=== PATIENT | female | born 1980 | race Two or more races ===

== ENCOUNTER 2017-01-20 13:22 | Emergency (ER) | payer OTHER ==
[2017-01-20 13:31] VITALS: RESP 18
--- NOTE | 2017-01-20 15:11 | EDPHY ---
H & P Stated Complaint: hx degenerative disc disease increasing pain/spasms making her nauseated Time Seen by Provider: 01/20/17 13:57 HPI/ROS: CHIEF COMPLAINT: low back pain HISTORY OF PRESENT ILLNESS: 36-year-old female presents emergency department complaining of worsening low back pain for the past 2 weeks. Patient reports her pain is bilateral, into her hips and pelvis, worse on the right side. Patient reports pain radiates down her lateral right leg. Patient states 2 days ago she had bowel incontinence. She reports numbness and tingling to her groin. Patient reports a known herniated disc from MRI in 2011 that she never had followed up. This pain improved significantly until a few weeks ago. 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 She denies any new trauma. This morning her pain increased significantly while brushing her teeth. Patient denies fevers or chills. No urinary frequency, urgency or dysuria. REVIEW OF SYSTEMS: A comprehensive 10 point review of systems is otherwise negative aside from elements mentioned in the history of present illness. Source: Patient Exam Limitations: No limitations - Personal History LMP (Females 10-55): Hysterectomy Current Tetanus/Diphtheria Vaccine: Unsure - Medical/Surgical History Hx Asthma: No Hx Chronic Respiratory Disease: No Hx Diabetes: No Hx Cardiac Disease: No Hx Renal Disease: No Hx Cirrhosis: No Hx Alcoholism: No Hx HIV/AIDS: No Hx Splenectomy or Spleen Trauma: No Other PMH: degenerative disc - Social History Smoking Status: Current every day smoker - Physical Exam Exam: Physical Exam Gen: Alert and Oriented, NAD HEENT: PERRL, moist mucous membranes NECK: no meningismus CV: regular rate and regular rhythm PULM: CTAB, no wheezes ABDOMEN: soft, non tender to palpation, BS present BACK: Bilateral lumbar paraspinal tenderness to palpation NEURO: Neurologically grossly intact, 2/4 deep tendon reflexes patellar and Achilles, negative straight leg raise bilaterally, 5/5 strength bilateral lower extremities EXTREMITIES: normal appearing SKIN: no rash or break in skin on exposed skin PSYCH: answers questions appropriately. Constitutional: Initial Vital Signs Temperature (C) 36.6 C 01/20/17 13:29 Heart Rate 97 01/20/17 13:29 Respiratory Rate 18 01/20/17 13:29 Blood Pressure 122/65 H 01/20/17 13:29 O2 Sat (%) 99 01/20/17 13:29 Allergies/Adverse Reactions: No Known Allergies Allergy (Unverified 01/20/17 13:28) Home Medications: Medication Instructions Recorded Doans 01/20/17 Lidocaine 5% [Lidoderm 5% Patch 1 ea TD DAILY #4 patch 01/20/17 (*)] Methocarbamol [Robaxin-750] 750 - 1,500 mg PO QID PRN #20 01/20/17 tablet Medical Decision Making - Diagnostics Imaging Results: Imaging Impressions Lumbar Spine MRI 01/20/17 14:48 Impression: 1. Mild features of degenerative disk disease at L4-L5 and L5-S1. No dominant central disk herniation. Mild bilateral neural foraminal stenosis at L5-S1. 2. No evidence of cauda equina syndrome or significant central canal stenosis. Results called to Gerardo Coronado NP, at 4:00 p.m. Imaging: Discussed imaging studies w/ call centre supervisor Radiologist ED Course/Re-evaluation: 36-year-old female presents with low back pain radiating down into bilateral buttocks with saddle anesthesias and loss control of her bowel 2 days ago. MRI L spine without contrast has been ordered. L-spine MRI shows a small herniated disc at L4-5 and a small herniated disc at L5-S1, no evidence of cauda equina syndrome. Patient is given IM Toradol, a lidocaine patch is placed. She is discharged with a prescription for lidocaine patches and methocarbamol. Patient is given a primary care doctor to establish care with. I have recommended formal physical therapy for core strengthening exercises. Patient is given strict return precautions for any neurological compromise. Patient is comfortable with this plan. Differential Diagnosis: The differential diagnosis for the patient's back pain included but was not limited to musculo-skeletal pain, epidural abscess, herniated disk, spinal fracture, cauda equina and intra-abdominal causes including urinary system. Departure - Departure Disposition: Home, Routine, Self-Care Clinical Impression: Lumbar radiculitis Condition: Good Instructions: Lumbar Disc Herniation (ED), Lumbar Radiculopathy (ED), Lower Back Exercises (ED), Core Strengthening Exercises (ED) Additional Instructions: Take 600 mg of ibuprofen 3 times per day with food, takes methocarbamol every 8 hours as needed for muscle spasms. Use lidocaine patches as needed for pain. Ice or heat whichever feels better, gentle range of motion exercises, core strengthening exercises daily. Follow up a primary care doctor to establish care and for a referral for physical therapy. Return to the emergency department for any loss of control of your bowel or bladder, numbness to your groin, fevers. Referrals: Palak Baltazar MD [Medical Doctor] - As per Instructions (Primary care doctor on-call) Prescriptions: Lidocaine 5% [Lidoderm 5% Patch (*)] 1 ea TD DAILY #4 patch Methocarbamol [Robaxin-750] 750 - 1,500 mg PO QID PRN #20 tablet PRN Reason: Spasms
[2017-01-20] MEDS ORDERED: KETOROLAC 15 MG/1 ML SDV IM ONE (16:06)
[2017-01-20] MEDS ORDERED: LIDOCAINE 5% 1 EA PATCH TD ONE (16:06)
[2017-01-20] MEDS ORDERED: KETOROLAC 30 MG/1 ML SDV ONE (16:20)
[2017-01-20 16:36] VITALS: BP 118/78; PULSE 73; TEMP 98.1; O2SAT 98
[2017-01-20] MEDS ORDERED: PATCH REMOVAL 1 EA PATCH TD SCH (21:00)
== END 2017-01-20 16:36 | disposition home or self-care (01) ==
DX: M54.16 Radiculopathy, lumbar region (principal); F17.200 Nicotine dependence, unspecified, uncomplicated
CPT/HCPCS: J1885